=== PATIENT | male | born 1965 | race Caucasian/White ===

== ENCOUNTER 2021-09-01 20:33 | Emergency (ER) | payer SELFPAY ==
[~2021-09-01] VITALS: Ht 188 cm; Wt 100.0 kg
[2021-09-01 21:33] LABS: BASO # 0.1 x10^3/uL (0.0-0.2); BASO % 1 % (0-3); EOS # 0.2 x10^3/uL (0.0-0.7); EOS % 3 % (0-3); HEMATOCRIT 38.5 % (39.0-53.0); HEMOGLOBIN 13.1 g/dL (13.0-17.5); LYMPH # 1.8 x10^3/uL (1.0-4.8); LYMPH % 30 % (24-48); MEAN CORPUSCULAR HEMOGLOBIN 31 pg (25-35); MEAN CORPUSCULAR HGB CONC 34 g/dL (31-37); MEAN CORPUSCULAR VOLUME 92 fL (79-100); MONO # 0.7 x10^3/uL (0.0-1.1); MONO % 12 % (0-9); NEUT # 3.4 x10^3/uL (1.8-7.7); NEUT % 55 % (31-73); PLATELET COUNT 320 x10^3/uL (140-400); RED BLOOD COUNT 4.21 x10^6/uL (4.30-5.70); RED CELL DISTRIBUTION WIDTH 13.9 % (11.5-14.5); WHITE BLOOD COUNT 6.2 x10^3/uL (4.0-11.0)
[2021-09-01 21:47] LABS: POTASSIUM 3.7 mmol/L (3.5-5.1)
[2021-09-01 21:54] LABS: ALBUMIN 3.6 g/dL (3.4-5.0); ALBUMIN/GLOBULIN RATIO 0.8 (1.0-1.7); MAGNESIUM 1.9 mg/dL (1.8-2.4); TOTAL BILIRUBIN 0.8 mg/dL (0.2-1.0); TOTAL PROTEIN 8.2 g/dL (6.4-8.2)
[2021-09-01] MEDS ORDERED: KETOROLAC 30 MG/ML VIAL. IVP ONE (22:00)
--- NOTE | 2021-09-01 22:58 | RAD ---
Exam: Chest one view INDICATION: Chest pain TECHNIQUE: Frontal view of the chest Comparisons: None FINDINGS: The cardiomediastinal silhouette and pulmonary vessels are within normal limits. Subtle right infrahilar airspace disease. No pleural effusion. IMPRESSION: Right infrahilar airspace disease may be infectious or inflammatory in etiology Electronically signed by: Flo Cooper MD (09/01/2021 10:55 PM) [facility]
--- NOTE | 2021-09-01 23:32 | PHYS DOC ---
Past Medical History Additional Past Medical Histor: IV DRUG USE (METH, HEROIN) Past Surgical History: No Surgical History Smoking Status: Current Every Day Smoker Alcohol Use: Occasionally Social History Narrative: JUST USED METH, HEROIN, MARIJUANA.............72 HOURS AGO General Adult EDM: Chief Complaint: CHEST PAIN HPI: HPI: Patient is a 56-year-old male presents to the emergency department via EMS stock handler transport for chest pain starting 2 to 3 hours ago, was given 324 mg aspirin in route by stock handler, no other treatment rendered, patient reports chest pain is a slow onset to the left chest into the shoulder area that increases with movement and palpation to this area. Patient denies chest palpitations, chest or nasal congestion, denies recent fever or chills. Patient denies shortness of breath, throat pain or ear pain, abdominal pain, nausea, vomiting, diarrhea or constipation, patient denies increased urination, or other dysuria, denies syncopal or near syncopal episodes, denies dizziness or visual disturbances. Patient denies homicidal or suicidal ideation, denies diaphoretic episodes. Patient reports he is at the [facility] drug rehabilitation facility for the past 5 days for methamphetamine and heroin abuse treatment. Patient reports he has not had his anxiety and hypertension medications for the past 5 days stating they should be delivered to that facility tomorrow morning. Patient does report a history of cardiac catheterization 2 years ago at a hospital in the [facility], reports his heart cath was negative, states he was told his symptoms were related to "cocaine cardiac spasms ". Patient denies other physical complaints or physical concerns. Patient reports being a 2 pack/day smoker, drinks alcohol on occasion, admits to methamphetamines, heroin, marijuana, cocaine, PCP use within the past 2 years most recent began methamphetamines and heroin. Review of Systems: Review of Systems: 14 body systems of review of systems have been reviewed. See HPI for pertinent positives and negative responses, otherwise all other systems are negative, nonpertinent or noncontributory. Constitutional: Negative except as outlined in HPI above. Skin: Negative except as outlined in HPI above. Eyes: Negative except as outlined in HPI above. HENT: Negative except as outlined in HPI above. Respiratory: Negative except as outlined in HPI above. Cardiovascular: Negative except as outlined in HPI above. GI: Negative except as outlined in HPI above. : Negative except as outlined in HPI above. Musculoskeletal: Negative except as outlined in HPI above. Integument: Negative except as outlined in HPI above. Neurologic: Negative except as outlined in HPI above. Endocrine: Negative except as outlined in HPI above. Lymphatic: Negative except as outlined in HPI above. Psychiatric: Negative except as outlined in HPI above. Heart Score: C/O Chest Pain: Yes HEART Score for Chest Pain: HEART Score for Chest Pain Response (Comments) Value History Slighlty/Non-Suspicious 0 ECG Normal 0 Age >45 - < 65 1 Risk Factors 1 or 2 Risk Factors 1 Troponin < Normal Limit 0 Total 2 Risk Factors: Risk Factors: DM, Current or recent (<one month) smoker, HTN, HLP, family history of CAD, obesity. Risk Scores: Score 0 - 3: 2.5% MACE over next 6 weeks - Discharge Home Score 4 - 6: 20.3% MACE over next 6 weeks - Admit for Clinical Observation Score 7 - 10: 72.7% MACE over next 6 weeks - Early Invasive Strategies Current Medications: Patient reports current home medications of trazodone, Seroquel, Suboxone, Prozac, Xanax. Current Medications Medications (Trade) Dose Ordered Sig/Zeinab Start Time Stop Time Status Last Admin Dose Admin Ketorolac Tromethamine (Toradol 30mg Vial) 30 mg 1X ONCE 09/01/21 22:00 09/01/21 22:01 DC 09/01/21 21:32 30 MG Allergies: Allergies: Allergies Coded Allergies Type Severity Reaction Last Updated Verified No Known Drug Allergies 09/01/21 No Physical Exam: PE: Constitutional: Well developed, well nourished, no acute distress, non-toxic appearance. 56-year-old male in no apparent distress. HENT: Normocephalic, atraumatic. Oropharynx moist, pink, no deep tissue infectious process appreciated, bilateral TMs intact and within normal limits, no lymphadenopathy of the head or neck appreciated. Eyes: Conjunctiva normal, no discharge. No scleral icterus appreciated. Neck: Normal range of motion, no stridor. Cardiovascular: No cyanosis appreciated, distal cap refill less than 2 seconds. Heart sounds S1-S2 to auscultation, regular rate and rhythm. Lungs & Thorax: Patient is in no respiratory distress, no audible adventitious lung sounds appreciated. Lung sounds are clear to auscultation all lung angela, there is pain to palpation of the left anterior thorax musculoskeletal structures. Increased pain noted with active range of motion of left upper extremity. Abdomen: Nontender, no abnormalities noted. Skin: Warm, dry, no erythema, no rash. Back: No tenderness, no deformities. Extremities: No tenderness, no cyanosis, no clubbing, ROM intact, no edema. 2+4 pulses, distal cap refill less than 2 seconds all 4 extremities. Neurologic: Alert and oriented X 3, normal motor function, normal sensory function, no focal deficits noted. Psychologic: Affect normal, judgement normal, mood normal. Current Patient Data: Labs: Laboratory Tests Test 09/01/21 20:55 White Blood Count 6.2 x10^3/uL (4.0-11.0) Red Blood Count 4.21 x10^6/uL (4.30-5.70) L Hemoglobin 13.1 g/dL (13.0-17.5) Hematocrit 38.5 % (39.0-53.0) L Mean Corpuscular Volume 92 fL (79-100) Mean Corpuscular Hemoglobin 31 pg (25-35) Mean Corpuscular Hemoglobin Concent 34 g/dL (31-37) Red Cell Distribution Width 13.9 % (11.5-14.5) Platelet Count 320 x10^3/uL (140-400) Neutrophils (%) (Auto) 55 % (31-73) Lymphocytes (%) (Auto) 30 % (24-48) Monocytes (%) (Auto) 12 % (0-9) H Eosinophils (%) (Auto) 3 % (0-3) Basophils (%) (Auto) 1 % (0-3) Neutrophils # (Auto) 3.4 x10^3/uL (1.8-7.7) Lymphocytes # (Auto) 1.8 x10^3/uL (1.0-4.8) Monocytes # (Auto) 0.7 x10^3/uL (0.0-1.1) Eosinophils # (Auto) 0.2 x10^3/uL (0.0-0.7) Basophils # (Auto) 0.1 x10^3/uL (0.0-0.2) D-Dimer (Amalia) 0.38 ug/mlFEU (0.00-0.50) Sodium Level 139 mmol/L (136-145) Potassium Level 3.7 mmol/L (3.5-5.1) Chloride Level 101 mmol/L (98-107) Carbon Dioxide Level 26 mmol/L (21-32) Anion Gap 12 (6-14) Blood Urea Nitrogen 18 mg/dL (8-26) Creatinine 1.0 mg/dL (0.7-1.3) Estimated GFR (Cockcroft-Gault) 77.0 BUN/Creatinine Ratio 18 (6-20) Glucose Level 135 mg/dL (70-99) H Calcium Level 9.0 mg/dL (8.5-10.1) Magnesium Level 1.9 mg/dL (1.8-2.4) Total Bilirubin 0.8 mg/dL (0.2-1.0) Aspartate Amino Transferase (AST) 16 U/L (15-37) Alanine Aminotransferase (ALT) 23 U/L (16-63) Alkaline Phosphatase 72 U/L (46-116) Troponin I High Sensitivity 5 ng/L (4-75) DQ-Mjq-D-Type Natriuretic Peptide 39 pg/mL (0-124) Total Protein 8.2 g/dL (6.4-8.2) Albumin 3.6 g/dL (3.4-5.0) Albumin/Globulin Ratio 0.8 (1.0-1.7) L Lipase 242 U/L (73-393) Laboratory Tests 09/01/21 20:55 Laboratory Tests 09/01/21 20:55 Vital Signs: Vital Signs Date Time Temp Pulse Resp B/P (MAP) Pulse Ox O2 Delivery O2 Flow Rate FiO2 09/01/21 21:57 72 21 131/81 (98) 98 Room Air 09/01/21 20:35 98.1 98.1 EKG: EKG: EKG performed at 2042 by ED nursing staff shows a normal sinus rhythm without other ectopy. Heart rate is 68 bpm, GA interval 0.158, QTc interval 0.430, no acute STEMI, no ACS, no acute ischemia appreciated, EKG interpreted by ED attending physician Dr. Hylton. Radiology/Procedures: Radiology/Procedures: REASON: Chest pain PROCEDURE: PORTABLE CHEST 1V Exam: Chest one view INDICATION: Chest pain TECHNIQUE: Frontal view of the chest Comparisons: None FINDINGS: The cardiomediastinal silhouette and pulmonary vessels are within normal limits. Subtle right infrahilar airspace disease. No pleural effusion. IMPRESSION: Right infrahilar airspace disease may be infectious or inflammatory in etiology Electronically signed by: Flo Cooper MD (09/01/2021 10:55 PM) [facility] Course & Med Decision Making: Course & Med Decision Making Pertinent Labs and Imaging studies reviewed. (See chart for details) 56-year-old male, vital signs reviewed, presents to the emergency department concerning chest pain. Patient's physical examination is consistent with musculoskeletal chest pain. However with patient's history of illicit drug abuse will order CBC, CMP, lipase, magnesium, D-dimer, urinalysis assay, urine drug screen, NT proBNP, serial EKGs, serial troponin I high-sensitivity. Will give IV pain medication. Patient's chest x-ray concerning for infectious versus inflammatory process, patient is a daily cigarette smoker will start on azithromycin Z-Demetris regimen. The patient's initial high-sensitivity troponin and serial 2-hour high- sensitivity troponin nonconcerning, the patient did not give a urine specimen for urine drug screen, all other serum labs are nonconcerning. Patient did report pain relief with IV Toradol given. Patient is currently rating a 0 out of 10 chest pain, is nontoxic in appearance and in no apparent distress. Discussed with patient azithromycin antibiotic regimen, side effects, return to ER precautions and concerns, discussed with patient returning to his drug rehabilitation center and continuing with their program, recommended patient stop smoking, he is not interested at this time, discussed follow-up with primary care after he is released from his drug rehabilitation, patient gave verbal understanding of and is amenable to ED discharge planning. The patient's EKG was negative, cardiac enzymes are negative, D-dimer is negative, low likelihood of pulmonary emboli. Discussed with the patient all findings and diagnostic testing as well as the need to follow-up with their primary care provider for further evaluation and t reatment or return to the ED if any new or worsening symptoms. Strict return precautions were also discussed at length, the patient voiced understanding and agreement with the discharge planning. The patient was nontoxic in appearance, in no apparent distress, and hemodynamically stable at the time of disposition. Dragon Disclaimer: Dragon Disclaimer: This electronic medical record was generated, in whole or in part, using a voice recognition dictation system. Departure Departure Impression: Primary Impression: Chest pain Qualified Codes: R07.9 - Chest pain, unspecified Additional Impressions: Abnormal chest x-ray Cigarette smoker Disposition: HOME / SELF CARE / HOMELESS Condition: GOOD Referrals: NO PCP (PCP) Patient Instructions: Chest Pain (Nonspecific), Smoking Cessation Additional Instructions: You were seen today in the emergency department for chest pain. Your EKG did not show any concerning findings, your cardiac enzymes specifically your high- sensitivity troponin I was nonconcerning for cardiac stress or myocardial infarction. Your chest x-ray did show some pulmonary changes that may be infectious in nature. Therefore as we discussed I am starting you on an antibiotic called azithromycin, please take as directed until complete. Please stop smoking cigarettes as this may contribute to your symptoms and cause further health problems. Please continue to take all of your prescribed medications, please return to the [facility] program. Return to the emergency department for worsening symptoms or other concerns. Thank you for visiting our Emergency Department. It was a pleasure taking care of you today in the emergency department and we appreciate you trusting us with your care. If any additional problems come up don't hesitate to return to visit us. Please follow up with your primary care provider so they can plan additional care if needed and know about the problem that you had. If symptoms worsen come back to the Emergency Department. Any concerning symptoms that start such as chest pain, shortness of air, weakness or numbness on one side of the body, running high fevers or any other concerning symptoms return to the ER. EMERGENCY DEPARTMENT GENERAL DISCHARGE INSTRUCTIONS Thank you for coming to [facility] Emergency Department (ED) today and trusting us with you care. We trust that you had a positive experience in our Emergency Department. If you wish to speak to the department management, you may call the Director at [phone]. YOUR FOLLOW UP INSTRUCTIONS ARE FOLLOWS: 1. Do you have a private Doctor? If you do not have a private doctor, please ask for a resource list of physicians or clinics that may be able to assist you with follow up care. 2. The Emergency Physicain has interpreted your x-rays. The X-Ray specialist will also review them. If there is a change in the findings, you will be notified in 48 hours when at all possible. 3. A lab test or culture has been done, your results will be reviewed and you will be notified if you need a change in treatment. ADDITIONAL INSTRUCTIONS AND INFORMATION: 1. Your care today has been supervised by a physician who is specially trained in emergency care. Many problems require more than one evaluation for a complete diagnosis and treatment. We recommend that you schedule your follow up appointment as recommended to ensure complete treatment of you illness or injury. If you are unable to obtain follow up care and continue to have a problem, or if your condition worsens, we recommend that you return to the ED. 2. We are not able to safely determine your condition over the phone nor are we able to give sound medical advice over the phone. For these safety reasons, if you call for medical advice we will ask you to come to the ED for further evaluation. 3. If you have any questions regarding these discharge instructions please call the ED at [phone]. SAFETY INFORMATION: In the interest of safety, wellness, and injury prevention; we encourage you to wear your sealbelt, if you smoke; quite smoking, and we encourage family to use a prot ective helmet for bicycling and other sporting events that present an increased risk for head injury. IF YOUR SYMPTOMS WORSEN OR NEW SYMPTOMS DEVELOP, OR YOU HAVE CONCERNS ABOUT YOUR CONDITION; OR IF YOUR CONDITION WORSENS WHILE YOU ARE WAITING FOR YOUR FOLLOW UP APPOINTMENT; EITHER CONTACT YOUR PRIMARY CARE DOCTOR, THE PHYSICIAN WHOSE NAME AND NUMBER YOU WERE GIVEN, OR RETURN TO THE ED IMMEDIATELY. Scripts Azithromycin (AZITHROMYCIN TABLET) 250 Mg Tablet 1 PKG PO UD for infection for 5 Days, #6 TAB 0 Refills 2 the first day followed by 1 for days 2-5 Prov: ELMER VU APRN 09/02/21 ELMER VU APRN Sep 01, 2021 23:32
[2021-09-01 23:44] LABS: BILIRUBIN,URINE NEGATIVE (NEG); CLARITY,URINE CLEAR; COLOR,URINE YELLOW; NITRITE,URINE NEGATIVE (NEG); PROTEIN,URINE TRACE mg/dL (NEG-TRACE); UROBILINOGEN,URINE 0.2 mg/dL (0.2 mg/dL)
[2021-09-01] MEDS ORDERED: AZITHROMYCIN 250 MG TABLET. PO ONE (23:45)
[2021-09-01 23:46] LABS: BACTERIA,URINE 0 /HPF (0-FEW); BARBITURATES NEG (NEG); BENZODIAZEPINES NEG (NEG); CANNABINOIDS NEG (NEG); COCAINE NEG (NEG); METHADONE NEG (NEG); OPIATES NEG (NEG); PHENCYCLIDINE NEG (NEG); RBC,URINE 0 /HPF (0-2); WBC,URINE OCC /HPF (0-4)
[2021-09-01 23:49] LABS: AMPHETAMINE/METHAMPHETAMINE NEG (NEG)
[2021-09-02] MEDS ORDERED: AZITHROMYCIN 250 MG TABLET. PO ONE
[2021-09-02 00:27] VITALS: BP 128/80
[2021-09-02] MEDS ORDERED: AZIT250T6 PO (00:40)
--- NOTE | 2021-09-02 04:02 | EKG ---
[facility] [address] [place] [address] Test Date: 2021-09-01 Test Time: 20:43:11 Pat Name: ITALO MEDINA Department: Room: Gender: Roll Picker: : [phone] Requested By: ELMER VU Order Number: [id number] Reading MD: Measurements Intervals [place] Rate: 68 P: 64 UT: 158 QRS: 28 QRSD: 94 T: 44 QT: 404 QTc: 430 Interpretive Statements SINUS RHYTHM NORMAL ECG RI6.02 No previous ECG available for comparison
== END 2021-09-02 01:00 | disposition home or self-care (01) ==
LOC: ER 20:33
DX: R07.89 Other chest pain (principal); R91.8 Other nonspecific abnormal finding of lung field; F17.210 Nicotine dependence, cigarettes, uncomplicated
CPT/HCPCS: 36415; 71045; 80053; 80307; 81001; 83690; 83735; 83880; 84484; 85025; 85379; 93005; 96374; 99285; J1885